=== PATIENT | male | born 1945 | race Hispanic/Latino ===

== ENCOUNTER 2017-02-17 14:00 | Outpatient (CLI) | payer MEDICARE ==
--- NOTE | 2017-02-17 14:11 | XRay Report ---
LEFT SHOULDER RADIOGRAPHS INDICATION: Left anterior shoulder pain. COMPARISON: None similar. FINDINGS: Frontal and Y views of the left shoulder, 3 projections demonstrate normal humeral head contour, well positioned against the glenoid. Intact acromioclavicular joint with slight degenerative spurring. Preserved scapular contour. Normal visualized soft tissues, left ribs and lung. Possible osteopenia. CONCLUSION: No acute left shoulder radiographic abnormality, as described. Thank you for the opportunity to participate in this patient's care.
== END 2017-02-17 14:01 | disposition home or self-care (01) ==
LOC: SPVIMAG 14:00
PROVIDERS: ATTEND Internal Medicine
DX: M25.812 Other specified joint disorders, left shoulder (principal); M25.512 Pain in left shoulder; R55 Syncope and collapse